=== PATIENT | female | born 1980 | race Caucasian/White ===

== ENCOUNTER 2022-12-22 08:21 | Emergency (ER) | payer BC, SELFPAY ==
--- NOTE | 2022-12-22 08:29 | ED.EXTPRO ---
HPI - Extremity Problem General Chief complaint: Extremity Problem,Nontraumatic Stated complaint: R KNEE SWELLING/REDNESS Time Seen by Provider: 12/22/22 08:29 Source: patient and RN notes reviewed History of Present Illness HPI Narrative: Patient is a 42-year-old female who presents to urgent care with complaints of intermittent swelling and redness of the right knee. Patient states that she is very active involved in lifting, running and biking. Patient states that she noticed it 2 weeks ago, a resolved with ice and elevation. Patient states that she stayed off of it for approximately a week and she had nearly full resolution. Patient states that her chiropractor was concerned about possible infection and advised her to have it evaluated. Patient states that she does not have any knee pain and denies any recent trauma or injury to the knee. Patient has never had surgery on the knee. Denies any fevers. States that she does not have any pain currently. No acute distress noted. Patient aware of the plan of care. Some parts of this dictation were generated by voice recognition software and may contain typographical and/or grammatical inaccuracies. Related Data Home Medications Medication Instructions Recorded Confirmed Women's Multivitamin 1 tablet PO DAILY 12/22/22 12/22/22 Allergies Allergy/AdvReac Type Severity Reaction Status Date / Time Sulfa (Sulfonamide Allergy Rash Verified 12/22/22 08:34 Antibiotics) Review of Systems Review of Systems: CONSTITUTIONAL: Denies fever, chills, or sweats. EYES: Denies visual changes, redness, or discharge. ENT: Denies rhinorrhea, congestion, sore throat, or otalgia. CARDIOVASCULAR: Denies chest pain, palpitations, or edema. RESPIRATORY: Denies cough or dyspnea. GASTROINTESTINAL: Denies abdominal pain, nausea, vomiting, or diarrhea. GENITOURINARY: Denies dysuria or hematuria. SKIN: Denies rash or itching. MUSCULOSKELETAL: Reports of intermittent swelling of the right knee NEUROLOGIC: Denies headache, numbness, or weakness. All other systems reviewed are negative, except as documented in HPI. PMFSH Comments At the time of my signature, I reviewed and agree with the nursing past medical, surgical, social, and family history. There is no relevant family history pertinent to the patient complaint. Exam Narrative: GENERAL: This is a well-nourished, well-developed patient, in no apparent distress. HEAD: normocephalic, atraumatic. EYES: PERRL. Sclera clear/white. Vision is grossly intact. EARS: External ears normal, NOSE: External nose normal with no obvious nasal discharge, nares without redness, no rhinorrhea. THROAT: Mucous membranes moist NECK: Neck supple, SKIN: 0.5cm circular area of non raised erythema to the anterior aspect of the right knee without tenderness or signs of infection. Warm, intact with no suspicious lesions or rash, good texture and turgor. NEURO: awake, alert, and oriented to person, place and time. There were no obvious focal neurologic abnormalities. EXTREMITIES: Range of motion to right lower extremity within normal limits without joint tenderness, edema or ecchymosis to the right knee. No notable effusion to the right knee. Negative anterior drawer test. Positive strong right pedal pulse with capillary refill less than 2 seconds. Course Course Level of Care: Express Care Visit Vital Signs Vital signs: Vital Signs Temperature 97.9 F 12/22/22 08:32 Pulse Rate 88 12/22/22 08:32 Respiratory Rate 16 12/22/22 08:32 Blood Pressure 133/92 H 12/22/22 08:32 Pulse Oximetry 100 12/22/22 08:32 Temperature 97.9 F 12/22/22 08:32 Pulse Rate 88 12/22/22 08:32 Respiratory Rate 16 12/22/22 08:32 Blood Pressure 133/92 H 12/22/22 08:32 Pulse Oximetry 100 12/22/22 08:32 Reviewed- Patient is informed that they may have pre-hypertension or hypertension based on a blood pressure reading in the department. I recomme
[2022-12-22 08:32] VITALS: BP 133/92; PULSE 88; RESP 16; TEMP 36.6; O2SAT 100
== END 2022-12-22 09:01 | disposition home or self-care (01) ==
PROVIDERS: Emergency Provider Nurse Practitioner Family
DX: M25.561 Pain in right knee (principal)
CPT/HCPCS: 99212; G0463